=== PATIENT | male | born 1950 | race Caucasian/White ===

== ENCOUNTER 2016-04-06 16:46 | Emergency (ER) | payer OTHER ==
--- NOTE | 2016-04-06 16:51 | ED GENERAL ADULT ---
History of Present Illness General Chief Complaint: Syncope and Near-Syncope Stated Complaint: BIBA SYNCOPAL EPISODE Source: family, EMS Exam Limitations: unable to give history, clinical condition, physical impairment Vital Signs & Intake/Output Vital Signs & Intake/Output Vital Signs Date Time Temp Pulse Resp B/P Pulse O2 O2 Flow FiO2 Ox Delivery Rate 04/06 2145 Ventilator 100% ED Intake and Output 04/07 0000 04/06 1200 Intake Total 0 Output Total Balance 0 Intake, Oral 0 The patient was treated with CPR, ACLS measures. (SHERWIN MULLINS DO) Allergies Coded Allergies: UNOBTAINABLE (04/06/16) Triage Nurses Notes Reviewed? yes Onset: Abrupt Duration: hour(s): Timing: recent history HPI: 04/06/16 The patient was seen on arrival He is a 66-year-old man who recently had brain surgery. According to his earlier today he had some difficulty breathing, but was reluctant to come to the hospital. Later in the day he had felt worse and had some chest discomfort, 911 was called. In the emergency department he was moaning and lethargic, bradycardic. He had periods of bradypnea. He was intubated with a 7.5 endotracheal tube using a Jaziel vision, excellent visualization of the cords was seen, he had good breath sounds bilaterally and excellent end-tidal CO2 color change. The patient lost pulses and was in and out of PEA. CPR was immediately instituted along with standard ACLS measures. The patient was treated with epinephrine, IV fluids, a right femoral line was placed by nj, sodium bicarbonate, Narcan, glucagon, and an epinephrine drip was briefly started after he regained pulses transiently. Despite aggressive efforts the patient did not respond and he was pronounced at 1734. The family was notified. The ME was notified and declined the case. Past History Travel History Traveled to [place] past 21 day No Medical History Any Pertinent Medical History? see below for history Neurological: seizure, STATUS POST BRAIN SURGERY Cardiovascular: HYPERLIPIDEMIA Surgical History Surgical History: S/P BRAIN SURGERY Family History Hx Contributory? No Review of Systems Review of Systems Constitutional: Reports: no symptoms. EENTM: Reports: no symptoms. Respiratory: Reports: see HPI. Cardiovascular: Reports: see HPI. GI: Reports: no symptoms. Genitourinary: Reports: no symptoms. Musculoskeletal: Reports: no symptoms. Skin: Reports: see HPI. Neurological/Psychological: Reports: confusion. Hematologic/Endocrine: Reports: no symptoms. Physical Exam Physical Exam General Appearance: obese, UNRESPONSIVE Head: atraumatic, ASHEN, Ears, Nose, Throat: DRY MUCOUS MEMBRANES Neck: supple Respiratory: decreased breath sounds, BRADYPNEA Cardiovascular: BRADYCARDIC, GOING INTO PEA Peripheral Pulses: 1+ carotid (L) Gastrointestinal: NONDISTENDED Extremities: pedal edema Neurologic/Psych: NOT RESPONDING TO PAIN Skin: pallor Core Measures ACS in differential dx? Yes CVA/TIA Diagnosis: No Severe Sepsis Present: No Septic Shock Present: No Progress Differential Diagnoses I considered the following diagnoses in my evaluation of the patient: [Acute myocardial infarction, pulmonary embolism, aortic dissection, intracranial hemorrhage] Plan of Care: Orders Procedure Date/time Status EKG 04/06 UNK Active Initial ED EKG: WIDE COMPLEX BRADYCARDIC RHYTHM, JUNCTIONAL ESCAPE Departure Departure Disposition: Condition: Stable Clinical Impression Primary Impression: Cardiac arrest Secondary Impressions: PEA (Pulseless electrical activity) Referrals: ALEJANDRA CABRAL,LALIT Garcia (PCP) Referred to [facility] as new patient No Departure Forms: Customer Survey General Discharge Information Comments The patient was placed on a monitor and oxygen. The patient was intubated, CPR was initiated, he was treated with IV fluids, epinephrine, Narcan, IV glucagon, epinephrine drip, external pacing. Despite all aggressive measures he did not respond. He was pronounced by me at 1734. Critical Care Note Critical Care Note Critical Care Time: 30-74 min
== END 2016-04-06 21:51 | disposition expired ==
LOC: ERH 16:46
DX: I46.9 Cardiac arrest, cause unspecified (principal)
CPT/HCPCS: 1387; 93005; 93010; 94799; 96374; 96375; 99291; J0171; J1610; J2310